=== PATIENT | female | born 1970 | race Asian ===

== ENCOUNTER 2018-07-17 13:25 | Emergency (ER) | payer MEDICARE, OTHER ==
[2018-07-17] MEDS: ACETAMINOPHEN 325 MG TAB PO (14:31)
== END 2018-07-17 15:40 | disposition home or self-care (01) ==
LOC: FTE 13:25
DX: S32.501A Unspecified fracture of right pubis, initial encounter for closed fracture (principal); F17.210 Nicotine dependence, cigarettes, uncomplicated; V89.2XXA Person injured in unspecified motor-vehicle accident, traffic, initial encounter
CPT/HCPCS: 73502; 73510; 99283-25